=== PATIENT | female | born 1985 | race Caucasian/White ===

== ENCOUNTER 2021-12-02 14:17 | Emergency (ER) | payer OTHER, SELFPAY ==
[2021-12-02 14:22] VITALS: BP 140/78; PULSE 87; RESP 20; TEMP 36.1; O2SAT 99
--- NOTE | 2021-12-02 14:36 | ED.WOUNDLAC ---
HPI - Wound/Laceration General Chief Complaint: Wound/Laceration Stated Complaint: finger lac Time Seen by Provider: 12/02/21 14:25 History of Present Illness HPI narrative: 36-year-old female presents emergency room for evaluation of laceration to her left hand. Patient states she was opening up a can when she accidentally cut the webbing of her left hand. Bleeding was controlled prior to arrival. Patient states that her tetanus shot is up-to-date. Related Data Allergies Allergy/AdvReac Type Severity Reaction Status Date / Time No Known Allergies Allergy Unverified 07/22/14 12:38 Review of Systems Review of Systems: CONSTITUTIONAL: Denies fever, chills, or sweats. EYES: Denies visual changes, redness, or discharge. ENT: Denies rhinorrhea, congestion, sore throat, or otalgia. CARDIOVASCULAR: Denies chest pain, palpitations, or edema. RESPIRATORY: Denies cough or dyspnea. GASTROINTESTINAL: Denies abdominal pain, nausea, vomiting, or diarrhea. GENITOURINARY: Denies dysuria or hematuria. SKIN: Reports laceration to left hand MUSCULOSKELETAL: Denies back pain, joint pain, or myalgia. NEUROLOGIC: Denies headache, numbness, dizziness, or weakness. PSYCHIATRIC: Denies anxiety or depression. [facility] Social History Social History Smoking status: Never smoker Alcohol intake: current Exam Narrative: GENERAL: Well-appearing, well-nourished, no physical limitations, and in no acute distress. HEAD: Normocephalic, atraumatic. EYES: Conjunctivae normal, PERRLA and EOMI. CHEST: Clear to auscultation. No respiratory distress. No wheezes rales or rhonchi. HEART: Regular rate and rhythm. No murmur heard. Normal peripheral pulses. EXTREMITIES: Normal range of motion. No edema. No clubbing or cyanosis SKIN: 1 cm linear laceration to the webbing of the left hand NEURO: No focal deficits. Alert and oriented x3. MAEW. CN's II-XI intact bilaterally, normal gait PSYCH: Cooperative. Normal mood and affect. Course Vital Signs Vital signs: Vital Signs Temperature 36.1 C L 12/02/21 14: Pulse Rate 87 12/02/21 14:22 Respiratory Rate 20 12/02/21 14:22 Blood Pressure 140/78 12/02/21 14:22 Pulse Oximetry 99 12/02/21 14:22 Oxygen Delivery Room Air 12/02/21 14:22 Temperature 36.1 C L 12/02/21 14:22 Pulse Rate 87 12/02/21 14:22 Respiratory Rate 20 12/02/21 14:22 Blood Pressure 140/78 12/02/21 14:22 Pulse Oximetry 99 12/02/21 14:22 Oxygen Delivery Room Air 12/02/21 14:22 Procedures Laceration Laceration 1: Date: 12/02/21 Time: 15:00 Site: hand Side (If applicable): left Size (cm): 1.5 Description: linear Depth: simple, single layer Local Anesthetic: lidocaine 1% Amount of anesthesia used (mL): 5 Pre-repair: irrigated ====== Skin Level ====== Skin layer closed with: nylon Size (cm): 6-0 Number of sutures: 3 Technique: simple, interrupted ====== Subcutaneous Layer ====== ====== Muscle Layer ====== ====== Tendon Layer ====== Discharge Plan Discharge Clinical Impression: Laceration Patient Disposition: Home, Self-Care Condition: Stable Instructions: Antibiotic Form, Laceration (ED) Additional Instructions: Stitches come out in 10 days. Monitor for signs of infection which include redness, swelling, increased pain, purulent discharge. Keep wound covered. May take Tylenol and ibuprofen as needed for pain. Follow-up/Referrals: UNKNOWN,DOCTOR [Primary Care Provider] - Time of Disposition: 15:01
[2021-12-02] MEDS: LIDOCAINE HCL 1% PF 30 ML VIAL 20 ML INFILTRATE (14:45)
== END 2021-12-02 15:08 | disposition home or self-care (01) ==
PROVIDERS: Emergency Provider Nurse Practitioner Family
DX: S61.412A Laceration without foreign body of left hand, initial encounter (principal); W26.8XXA Contact with other sharp object(s), not elsewhere classified, initial encounter
CPT/HCPCS: 12001; 99282

== ENCOUNTER 2024-02-03 15:27 | Outpatient (CLI) | payer OTHER, SELFPAY ==
--- NOTE | ~2024-02-03 | MM_ITS ---
EXAMINATION: MM screening cleo BI w jovita HISTORY: Screening. 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 TECHNIQUE: Craniocaudal and mediolateral oblique 3-D tomosynthesis images were obtained and synthetic 2-D images were generated. CAD analysis was submitted and interpreted. COMPARISON: Comparison to multiple prior studies sequentially, with oldest reviewed study dated 07/13. BREAST PARENCHYMAL COMPOSITION: Not dense: There are scattered areas of fibroglandular density. FINDINGS: There is distortion in the upper outer quadrant of the left breast, consistent with lumpect charmaine. There is no evidence of suspicious mass, calcification, or architectural distortion to suggest m alignancy in either breast. There has been no suspicious interval change. IMPRESSION: 1. No mammographic evidence of malignancy. 2. Recommend routine screening mammography in one year. BI-RADS Category 1: Negative Reviewed, dictated and finalized at location B. IR MANAGER
== END 2024-02-03 15:28 | disposition home or self-care (01) ==
PROVIDERS: PCP Obstetrics & Gynecology Gynecology; Visit Provider Obstetrics & Gynecology Gynecology
DX: Z12.31 Encounter for screening mammogram for malignant neoplasm of breast (principal)
CPT/HCPCS: 77063; 77067

== ENCOUNTER 2024-08-28 09:45 | Emergency (ER) | payer OTHER, SELFPAY ==
--- NOTE | ~2024-08-28 | XR_ITS ---
EXAM: XR lumbar spine 2-3V DATE: 08/28/2024 14:31 HISTORY: left sciatica . COMPARISON: None available. FINDINGS: 5 nonrib-bearing lumbar-type vertebral bodies. Pedicles intact. Normal vertebral body alig nment. Vertebral body heights preserved. Mild disc space narrowing at L3-4 and L4-5. Moderate disc sp kassie narrowing at L4-5 and L5-S1. Multilevel mild hypertrophy and sclerosis in the mid/lower lumbar sp ine. No fracture or dislocation. IMPRESSION: Multilevel mild-moderate degenerative disc disease. Multilevel mild lumbar facet arthropa thy. Reviewed, dictated and finalized at location K. IMPRESSION: Multilevel mild-moderate degenerative disc disease. Multilevel mild lumbar facet arthropathy.
[2024-08-28 09:47] VITALS: BP 125/90; PULSE 106; RESP 16; TEMP 36.4; O2SAT 100
--- NOTE | 2024-08-28 14:31 | PC.NURSE ---
X-Ray called to report that patient passed out after photos were complete. MD made aware and patient taken back to room. patient alert x4 at this time and reports that she has not eaten all day and that she felt light headed due to that. patient given crackers and apple juice and cold compress. patients vital signs: BP 97/55, HR 57, O2% 99%
[2024-08-28 14:33] VITALS: BP 97/55; PULSE 57; RESP 18; O2SAT 98
[2024-08-28] MEDS: SODIUM CHLORIDE 0.9% IV 1,000 ML 999 ML IV CONT (14:50)
[2024-08-28] MEDS: KETOROLAC 30 MG/ML VIAL (*BKC) IV PUSH (14:52)
[2024-08-28 15:41] VITALS: BP 123/58; PULSE 71; RESP 20; O2SAT 100
[2024-08-28] MEDS: diazePAM INJ (*CRX) 10 MG/2 ML SYRINGE 2.5 MG IV PUSH (16:11)
[2024-08-28 16:16] VITALS: BP 123/73; PULSE 81; RESP 19; O2SAT 100
--- NOTE | 2024-08-28 16:33 | ED_ITS ---
HPI - Back Pain/Injury General Chief Complaint: Back Pain/Injury Stated Complaint: sciatica pain Time Seen by Provider: 08/28/24 13:37 History of Present Illness HPI Narrative: Patient is a 38-year-old female who presents ER with sciatica. Ongoing over last couple weeks. She has seen a chiropractor with negative x-rays. She has been on naproxen and Flexeril. She was also on low-dose prednisone at 10 mg that improvement. No known trauma. She does weightlifting and was using some barbells feeding remaining lifts and she think that may have irritated the area but had no sudden onset pain. She has some tingling over the lateral aspect of her calf and the pain radiates from her left buttock down behind her leg. Has difficulty bearing weight. No saddle anesthesia. No difficulty with urination/defecation. Related Data Allergies Allergy/AdvReac Type Severity Reaction Status Date / Time No Known Allergies Allergy Unverified 08/28/24 09:50 Review of Systems Constitutional: Constitutional: Reports no additional constitutional complaints Respiratory: Respiratory: Reports no additional respiratory complaints Gastrointestinal: Gastrointestinal: Reports no additional gastrointestinal complaints Genitourinary: Genitourinary: Reports no additional female genitourinary complaints Musculoskeletal: Musculoskeletal: Reports no additional musculoskeletal complaints Neurologic: Reports system reviewed and no additional complaints, except as documented PMFSH Past Medical History Medical History (Updated 08/28/24 @ 16:49 by Mirza Knott MD) Healthy female adult Surgical History Surgical History (Updated 08/28/24 @ 16:35 by Mirza Knott MD) No pertinent past surgical history Social History Social History Smoking status: Never smoker Alcohol intake: current Exam Narrative: GENERAL: Well-appearing, well-nourished, and in no acute distress. HEAD: Normocephalic, atraumatic. ENT: Mucous membranes moist. CHEST: Clear to auscultation. No respiratory distress. HEART: Regular rate and rhythm. Normal peripheral pulses. Back: No midline tenderness the T/L-spine. There is mild discomfort in left SI region. No other paraspinal muscle tenderness. EXTREMITIES: Normal range of motion. No edema. NEURO: Alert and oriented x3. PSYCH: Normal mood and affect. Course Course Emergency Course: Patient did have a syncopal episode an x-ray due to pain when standing. Patient received IV fluids, Toradol, and Valium after this when her blood pressure had normalized. Vital Signs Vital signs: Vital Signs Temperature 97.6 F 08/28/24 09:47 Pulse Rate 106 H 08/28/24 09:47 Respiratory Rate 16 08/28/24 09:47 Blood Pressure 125/90 08/28/24 09:47 Pulse Oximetry 100 08/28/24 09:47 Temperature 97.6 F 08/28/24 09:47 Pulse Rate 81 08/28/24 16:16 Respiratory Rate 19 08/28/24 16:16 Blood Pressure 123/73 08/28/24 16:16 Pulse Oximetry 100 08/28/24 16:16 Discharge Plan Discharge Clinical Impression: Sciatica Patient Disposition: Home Condition: Stable Instructions: Sciatica (ED) Additional Instructions: Please return to the emergency department if you develop severe pain that is not controlled by pain medications or if you are unable to walk because of pain or weakness. Return to the emergency department immediately if you develop fevers, loss of bowel or bladder control (dribbling of urine or having accidents you wouldn't normally have), inability to urinate, numbness of your genital or anal area, or weakness/numbness of your legs or arms as these could all be signs of a serious medical emergency. Patient Language: Stateless Prescriptions: New methylprednisolone [Medrol (Ricardo)] 4 mg tablets,dose pack See Rx Instructions .ROUTE .COMPLEX Qty: 21 0RF Rx Instructions: for 6 days hydrocodone-acetaminophen 5-325 mg tablet 1 tablet PO Q6H PRN (Reason: pain) Qty: 12 0RF Follow-up/Referrals: Jameel Boucher MD [Physician] - 1 Week Andrei,SOO Chase [Primary Care Provider] -
[2024-08-28] MEDS: HYDROcodone/acetaminophen (*CRX) 5-325 MG TABLET 1 TAB PO (17:00)
== END 2024-08-28 17:05 | disposition home or self-care (01) ==
PROVIDERS: Emergency Provider Emergency Medicine; PCP Physician Assistant
DX: M54.30 Sciatica, unspecified side (principal)
CPT/HCPCS: 72100; 96361; 96374; 96375; 99284; A9270; J1885; J3360; J7030

== ENCOUNTER 2024-11-05 08:55 | Outpatient (CLI) | payer OTHER, SELFPAY ==
--- NOTE | ~2024-11-05 | MR_ITS ---
EXAMINATION: MR lumbar spine wo con DATE: 11/05/2024 09:34 INDICATION: Radiculopathy, lumbar region. TECHNIQUE: Magnetic resonance imaging (MRI) of the lumbar spine was performed without intravenous contrast. Sequences included sagittal T2-weighted FSE, sagittal T2-weighted FS FSE, sagittal T1-weighted FSE, and axial T2-weighted FSE. COMPARISON: Lumbar spine radiographs 08/28/2024 FINDINGS: There is 4 degrees levocurvature of lumbar spine. There is mild chronic anterior wedging of T11 and T12 vertebral bodies. There is mildly decreased disc height at L4-L5 and moderately decreased disc height at L5-S1. The distal spinal cord signal intensity is normal. The conus medullaris is at L1. The following disc levels are specifically discussed: L1-L2: There is a left central protrusion with annular fissure. There is moderate bilateral facet joint osteoarthritis. There is no neural foraminal stenosis. There is mild central canal stenosis. L2-L3: The disc is bulging and has an annular fissure. There is moderate bilateral facet joint osteoarthritis. There is mild bilateral neural foraminal stenosis. There is mild central canal stenosis. L3-L4: The disc is bulging and has an annular fissure. There is mild right and moderate left facet joint osteoarthritis. There is mild bilateral neural foraminal stenosis. There is mild central canal stenosis. L4-L5: The disc is bulging and has an annular fissure. There is severe bilateral facet joint osteoarthritis. There is mild right neural foraminal stenosis. There is mild central canal stenosis. L5-S1: There is a large left subarticular zone extrusion with mass effect on left S1 nerve root in left lateral recess. There is moderate right and mild left facet joint osteoarthritis. There is no neural foraminal stenosis. There is mild central canal stenosis at the midline. There is severe stenosis of left lateral recess. IMPRESSION: 1. Severe lower lumbar spondylosis. Of note, a large extrusion at L5-S1 exerts mass effect on left S1 nerve root. Reviewed, dictated and finalized at location E.
== END 2024-11-05 08:56 | disposition home or self-care (01) ==
PROVIDERS: PCP Physician Assistant; Visit Provider Physician Assistant
DX: M47.26 Other spondylosis with radiculopathy, lumbar region (principal); M51.26 Other intervertebral disc displacement, lumbar region
CPT/HCPCS: 72148

== ENCOUNTER 2025-02-22 13:55 | Outpatient (CLI) | payer OTHER, SELFPAY ==
--- NOTE | ~2025-02-22 | MM_ITS ---
EXAMINATION: MM screening cleo BI w jovita HISTORY: Screening. TECHNIQUE: Craniocaudal and mediolateral oblique 3-D tomosynthesis images were obtained and synthetic 2-D images were generated. CAD analysis was submitted and interpreted. COMPARISON: 2023 and 2018. BREAST PARENCHYMAL COMPOSITION: Dense: The breasts are heterogeneously dense, which may obscure small masses. FINDINGS: No suspicious masses are seen. There are no suspicious calcifications. No unexplained architectural distortion is seen. There are no skin or nipple abnormalities identified. There is no adenopathy seen on the images submitted. IMPRESSION: No mammographic evidence to suggest malignancy is seen. The patient may return to screening mammography as per ACR guidelines. BI-RADS 1 - Negative. Reviewed, dictated and finalized at location C. WOOD FLOOR FINISHER
== END 2025-02-22 13:56 | disposition home or self-care (01) ==
LOC: MICIMG 13:56
PROVIDERS: PCP Physician Assistant; Visit Provider Obstetrics & Gynecology Gynecology
DX: Z12.31 Encounter for screening mammogram for malignant neoplasm of breast (principal)
CPT/HCPCS: 77063; 77067